=== PATIENT | female | born 1970 | race Two or more races ===

== ENCOUNTER 2017-03-06 19:27 | Emergency (ER) | payer OTHER ==
[~2017-03-06] VITALS: Ht 175.3 cm; Wt 86.2 kg
== END 2017-03-06 22:19 | disposition home or self-care (01) ==
LOC: ER 19:27
DX: R40.0 Somnolence (principal); T42.4X2A Poisoning by benzodiazepines, intentional self-harm, initial encounter; T43.592A Poisoning by other antipsychotics and neuroleptics, intentional self-harm, initial encounter; Y92.89 Other specified places as the place of occurrence of the external cause

== ENCOUNTER 2018-02-22 17:23 | Emergency (ER) | payer OTHER ==
[~2018-02-22] VITALS: Ht 170.2 cm; Wt 83.9 kg
== END 2018-02-22 19:58 | disposition home or self-care (01) ==
LOC: ER 17:23
DX: S60.571A Other superficial bite of hand of right hand, initial encounter (principal); W54.0XXA Bitten by dog, initial encounter; Y93.89 Activity, other specified; Y92.89 Other specified places as the place of occurrence of the external cause; Y99.8 Other external cause status

== ENCOUNTER 2019-04-29 14:03 | Inpatient (IN) | payer OTHER ==
[~2019-04-29] VITALS: Ht 182.9 cm; Wt 5.0 kg
[2019-04-29] MEDS ORDERED: WELLBUTRIN SR150 MG (15:26)
[2019-04-29] MEDS ORDERED: CLONAZEPAM1 MG (15:26)
[2019-04-29] MEDS ORDERED: PROZAC20 MG (15:27)
[2019-04-29] MEDS ORDERED: SEROQUEL50 MG (15:27)
--- NOTE | 2019-04-29 15:28 | NUR ---
PACIENTE ALERTA Y ORIENTADA POR JOSE R ESFERAS QUIEN REFIERE DOLOR EN EL CUERPO, FIEBRE Y MALESTAR GENERAL DESDE HACE 2 TAI.
--- NOTE | 2019-04-29 16:36 | NUR ---
PACIENTE ALERTA Y ORIENTADA EVALUADA POR EL DR SANTACRUZ SE ORIENTA A PACIENTE SOBRE TRATAMIENTO MEDICO SE EXTRAEN MUESTRAS DE [place] PAVEL ORDEN MEDICA BAJO MEDIDAS ASEPTICAS.
--- NOTE | 2019-04-29 19:41 | NUR ---
SE COLOCA H/L A PTE, SE CTOMAN MUESTRAS DE LAB UTILIZANDO MEDIDAS ASEPTICAS. SE COLOCA A PTE EN AREA DE SEC. K.
== END 2019-04-30 17:50 | disposition left against medical advice (07) | DRG 202 ==
LOC: ER 14:03 → MEDJ 20:27 → SEC-K 20:27 → SURH 23:57 → MEDJ 04-30 00:25
PROVIDERS: ADMIT Internal Medicine
PROC: 8E0ZXY6 Isolation (ICD-10-PCS; principal; 2019-04-29)
DX: J20.0 Acute bronchitis due to Mycoplasma pneumoniae (principal); B20 Human immunodeficiency virus [HIV] disease; R65.10 Systemic inflammatory response syndrome (SIRS) of non-infectious origin without acute organ dysfunction; E86.0 Dehydration; E87.8 Other disorders of electrolyte and fluid balance, not elsewhere classified; R31.29 Other microscopic hematuria

== ENCOUNTER 2019-07-10 15:15 | Emergency (ER) | payer OTHER ==
[~2019-07-10] VITALS: Ht 165.1 cm; Wt 90.7 kg
[~2019-07-10 15:15] MED LIST: CLONAZEPAM1 MG; PROZAC20 MG; SEROQUEL50 MG; WELLBUTRIN SR150 MG
== END 2019-07-11 16:49 | disposition designated cancer center or children's hospital (05) ==
LOC: ER 15:15
DX: T50.992A Poisoning by other drugs, medicaments and biological substances, intentional self-harm, initial encounter (principal); F32.9 Major depressive disorder, single episode, unspecified; Y92.89 Other specified places as the place of occurrence of the external cause

== ENCOUNTER → 2020-08-29 | Outpatient (CLI) | payer OTHER | END | disposition home or self-care (01) | LOC: RAD 11:49 | PROVIDERS: ATTEND Family Medicine | DX: B20 Human immunodeficiency virus [HIV] disease (principal); M81.0 Age-related osteoporosis without current pathological fracture; M85.512 Aneurysmal bone cyst, left shoulder; S80.912A Unspecified superficial injury of left knee, initial encounter ==

== ENCOUNTER 2021-05-15 12:31 | Outpatient (CLI) | payer OTHER | END 2021-05-15 12:42 | disposition home or self-care (01) | LOC: MRI 12:31 | PROVIDERS: ATTEND Physical Medicine & Rehabilitation | DX: S83.282A Other tear of lateral meniscus, current injury, left knee, initial encounter (principal) | CPT/HCPCS: 73721 ==

== ENCOUNTER 2021-10-13 09:06 | Outpatient (CLI) | payer OTHER | END 2021-10-13 09:09 | disposition home or self-care (01) | LOC: RAD 09:06 | PROVIDERS: ATTEND Family Medicine | DX: M25.562 Pain in left knee (principal); S83.232S Complex tear of medial meniscus, current injury, left knee, sequela ==

== ENCOUNTER 2021-11-07 14:04 | Inpatient (IN) | payer OTHER ==
[~2021-11-07] VITALS: Ht 167.6 cm; Wt 81.2 kg
[~2021-11-07 14:04] MED LIST changes: -CLONAZEPAM1 MG; +CLONAZEPAM1 MG PO; -PROZAC20 MG; +PROZAC20 MG PO; -SEROQUEL50 MG; +SEROQUEL50 MG PO
[2021-11-09] MEDS ORDERED: TORA PO (13:16)
[2021-11-09] MEDS ORDERED: LAMICT PO (13:16)
[2021-11-09] MEDS ORDERED: AMBIEN10 MG PO (14:26)
[2021-11-13] MEDS ORDERED: LAMICTAL100 M1 (09:53)
[2021-11-14] MEDS ORDERED: KETO10TA2 (10:02)
[2021-11-16] MEDS ORDERED: DUI500 PO (08:16)
[2021-11-16] MEDS ORDERED: PERCOCET 5-3251 EACH PO (08:16)
[2021-11-16] MEDS ORDERED: ELIQUIS2.5 MG PO (08:16)
== END 2021-11-16 12:56 | DRG 470 ==
LOC: SURH 11-13 05:47 → O/R 11-13 05:47 → SURG 11-13 07:30 → SURH 11-13 14:21
PROVIDERS: ADMIT Orthopaedic Surgery; ATTEND Orthopaedic Surgery
PROC: 0SRD0J9 Replacement of Left Knee Joint with Synthetic Substitute, Cemented, Open Approach (ICD-10-PCS; principal; 2021-11-13 07:30)
DX: M17.12 Unilateral primary osteoarthritis, left knee (principal); D62 Acute posthemorrhagic anemia; Z21 Asymptomatic human immunodeficiency virus [HIV] infection status

== ENCOUNTER 2022-02-20 13:06 | Outpatient (CLI) | payer OTHER ==
[~2022-02-20 13:06] MED LIST changes: +AMBIEN10 MG PO; +DUI500 PO; +ELIQUIS2.5 MG PO; +KETO10TA2; +LAMICT PO; +LAMICTAL100 M1; +PERCOCET 5-3251 EACH PO; +TORA PO
== END 2022-02-20 13:18 | disposition home or self-care (01) ==
LOC: RAD 13:06
PROVIDERS: ATTEND Orthopaedic Surgery
DX: M25.562 Pain in left knee (principal)

== ENCOUNTER 2022-09-24 14:01 | Outpatient (CLI) | payer OTHER | END 2022-09-24 14:04 | disposition home or self-care (01) | LOC: NUCLEAR 14:01 | PROVIDERS: ATTEND Family Medicine | DX: Z12.31 Encounter for screening mammogram for malignant neoplasm of breast (principal); Z13.820 Encounter for screening for osteoporosis ==

== ENCOUNTER 2022-11-01 14:07 | Outpatient (CLI) | payer OTHER | END 2022-11-01 14:13 | disposition home or self-care (01) | LOC: MRI 14:07 | PROVIDERS: ATTEND Family Medicine | DX: M25.559 Pain in unspecified hip (principal) | CPT/HCPCS: 73721 ==

== ENCOUNTER 2024-02-04 14:23 | Outpatient (CLI) | payer OTHER | END 2024-02-04 14:29 | disposition home or self-care (01) | LOC: SONOGRAMA 14:23 | DX: R10.2 Pelvic and perineal pain (principal) ==

== ENCOUNTER 2024-02-04 15:28 | Outpatient (CLI) | payer OTHER | END 2024-02-04 15:34 | disposition home or self-care (01) | LOC: RAD 15:28 | PROVIDERS: ATTEND Family Medicine | DX: M25.519 Pain in unspecified shoulder (principal); G89.11 Acute pain due to trauma ==